=== PATIENT | female | born 2000 | race Two or more races ===

== ENCOUNTER 2024-04-06 10:16 | Emergency (ER) | payer OTHER ==
[2024-04-06 10:29] VITALS: BP 113/71; PULSE 78; RESP 18; TEMP 97.7; BMI 27.4
[2024-04-06] MEDS ORDERED: IBUPROFEN 600 MG TABLET (FP) PO ONE (11:14)
[2024-04-06] MEDS: IBUPROFEN 600 MG TABLET (FP) PO ONE (11:18)
[2024-04-06 11:45] LABS: THROAT:GRP A STREP DETECTED (NOTDETECTED)
== END 2024-04-06 12:16 | disposition home or self-care (01) ==
LOC: JERFT 10:16
DX: J02.0 Streptococcal pharyngitis (principal); R51.9 Headache, unspecified; R68.83 Chills (without fever); Z20.822 Contact with and (suspected) exposure to COVID-19
CPT/HCPCS: 0241U-QW; 87651; 99283-25